=== PATIENT | male | born 1940 | race Caucasian/White ===

== ENCOUNTER 2017-03-30 05:01 | Inpatient (IN) | payer OTHER ==
[~2017-03-30] VITALS: Ht 177.8 cm; Wt 105.7 kg
[~2017-03-30 05:01] MED LIST: CIPR-245 PO; METR500T PO
[2017-03-30] MEDS ORDERED: SODIUM CHLORIDE 0.9% 1000ML 1,000 ML IV ONE ×2 (05:25→08:05)
[2017-03-30] MEDS ORDERED: MORPHINE SULFATE 8 MG/ML VIAL ONE (05:26)
[2017-03-30 05:33] LABS: BASOPHILS % (AUTO) 0.4 % (0.0-5.0); EOSINOPHILS % (AUTO) 1.7 % (0.0-8.0); HEMATOCRIT 46.9 % (42-54); LYMPHOCYTES % (AUTO) 13.7 % (21.0-51.0); MEAN CORPUSCULAR HEMOGLOBIN 31.3 pg (27.0-33.0); MEAN CORPUSCULAR HGB CONC 34.8 g/dL (32.0-36.0); MEAN CORPUSCULAR VOLUME 89.7 fL (79-99); NEUTROPHILS % (AUTO) 77.2 % (40.0-77.0); PLATELET COUNT (AUTO) 204 K/uL (130-400); RED BLOOD CELL COUNT(AUTO) 5.23 MIL/uL (4.50-6.20); RED CELL DISTRIBUTION WIDTH 12.9 % (11.0-15.5); WHITE BLOOD COUNT (AUTO) 8.5 K/uL (4.8-10.8)
[2017-03-30 05:54] LABS: CREATININE 1.2 mg/dL (0.5-1.5)
[2017-03-30 05:58] LABS: ALBUMIN 3.5 g/dL (3.5-5.0); BILIRUBIN,TOTAL 0.8 mg/dL (0.2-1.0); TOTAL PROTEIN, SERUM 6.4 g/dL (6.0-8.3)
[2017-03-30] MEDS ORDERED: IOPAMIDOL-370 75 ML VIAL IV ONE (06:00)
[2017-03-30 06:44] LABS: APPEARANCE,URINE CLEAR (CLEAR); BILIRUBIN,URINE NEGATIVE (NEGATIVE); COLOR,URINE YELLOW (YELLOW); GLUCOSE, URINE (UA) NEGATIVE (NEGATIVE); KETONES,URINE NEGATIVE (NEGATIVE); LEUKOCYTE ESTERASE ,URINE NEGATIVE (NEGATIVE); NITRATE,URINE NEGATIVE (NEGATIVE); OCCULT BLOOD,URINE NEGATIVE (NEGATIVE); PROTEIN,URINE NEGATIVE (NEGATIVE); UROBILINOGEN,URINE 0.2 mg/dL (0.2-1.0)
[2017-03-30] MEDS ORDERED: ONDANSETRON HCL 4 MG/2 ML VIAL ONE (07:24)
[2017-03-30] MEDS ORDERED: CEFTRIAXONE SODIUM 2 GM VIAL ONE (10:00)
[2017-03-30] MEDS ORDERED: GUAIFENESIN-DM 200/20 MG 10 ML PO PRN (10:15)
[2017-03-30] MEDS ORDERED: ACETAMINOPHEN 325 MG TAB PO PRN (10:15)
[2017-03-30] MEDS ORDERED: MORPHINE SULFATE 2 MG/ML 1ML SYG IV PRN (10:15)
[2017-03-30] MEDS ORDERED: ONDANSETRON HCL 4 MG/2 ML VIAL IV PRN (10:15)
[2017-03-30 11:30] VITALS: BP 120/63
[2017-03-30] MEDS ORDERED: ASPI-555 PO (12:03)
[2017-03-30] MEDS ORDERED: TAMS0.4C32 PO (12:03)
[2017-03-30] MEDS ORDERED: ZOLP5TAB8 PO (12:03)
[2017-03-30] MEDS ORDERED: PRAV20TA4 PO (12:03)
[2017-03-30] MEDS ORDERED: NITR0.4T50 SL (12:03)
[2017-03-30] MEDS ORDERED: ACET-66 PO (12:03)
[2017-03-30] MEDS ORDERED: DIPH25CA85 PO (12:03)
[2017-03-30] MEDS ORDERED: BISA-72 PO (12:03)
[2017-03-30] MEDS ORDERED: SERT25TA5 PO (12:03)
[2017-03-30] MEDS ORDERED: LEVO125T11 PO (12:03)
[2017-03-30] MEDS ORDERED: WARF3TAB59 PO (12:03)
[2017-03-30] MEDS ORDERED: ZOSYN 3.375GM+NS 50ML 50 ML IV SCH (13:00)
[2017-03-30 15:55] VITALS: BP 125/68
[2017-03-30] MEDS: MEROPENEM 1 GM VIAL IVP SCH ×2 (16:26→21:01)
[2017-03-30] MEDS: SODIUM CHLORIDE 0.9% 1000ML 1,000 ML IV SCH (16:27)
[2017-03-30 17:19] LABS: INR 1.9 (0.85-1.15); PARTIAL THROMBOPLASTIN TIME 34.8 SEC (26.3-35.5); PROTHROMBIN TIME 19.7 SEC (9.6-11.6)
[2017-03-30 19:20] VITALS: BP 131/69
[2017-03-30] MEDS ORDERED: LORAZEPAM 2 MG/ML 1 ML VIAL IVP PRN (20:00)
[2017-03-30] MEDS: FAMOTIDINE/PF 20 MG/2 ML VIAL IV SCH (21:01)
[2017-03-30 23:20] VITALS: BP 135/69
[2017-03-31] MEDS: SODIUM CHLORIDE 0.9% 1000ML 1,000 ML IV SCH ×4 (02:13→21:06)
[2017-03-31 03:40] VITALS: BP 128/67
[2017-03-31 04:09] LABS: HEMATOCRIT 43.6 % (42-54); MEAN CORPUSCULAR HEMOGLOBIN 31.1 pg (27.0-33.0); MEAN CORPUSCULAR HGB CONC 34.2 g/dL (32.0-36.0); PLATELET COUNT (AUTO) 172 K/uL (130-400); RED BLOOD CELL COUNT(AUTO) 4.79 MIL/uL (4.50-6.20); RED CELL DISTRIBUTION WIDTH 13.3 % (11.0-15.5); WHITE BLOOD COUNT (AUTO) 7.7 K/uL (4.8-10.8)
[2017-03-31 04:17] LABS: CREATININE 1.1 mg/dL (0.5-1.5); POTASSIUM 3.9 mmol/L (3.5-5.1)
[2017-03-31 04:18] LABS: INR 1.72 (0.85-1.15); PARTIAL THROMBOPLASTIN TIME 38.2 SEC (26.3-35.5); PROTHROMBIN TIME 17.9 SEC (9.6-11.6)
[2017-03-31] MEDS: MEROPENEM 1 GM VIAL IVP SCH ×3 (06:07→21:05)
[2017-03-31 08:00] VITALS: BP 122/71
[2017-03-31] MEDS: FAMOTIDINE/PF 20 MG/2 ML VIAL IV SCH ×2 (08:26→21:05)
[2017-03-31] MEDS ORDERED: NITROGLYCERIN 0.4 MG SL TAB SL PRN (11:30)
[2017-03-31] MEDS ORDERED: DIPHENHYDRAMINE HCL 25 MG CAPSULE PO PRN (11:30)
[2017-03-31] MEDS ORDERED: ZOLPIDEM TARTRATE 5 MG TAB PO PRN (11:30)
[2017-03-31] MEDS ORDERED: BISACODYL 5 MG TABLET.DR PO PRN (11:30)
[2017-03-31 12:00] VITALS: BP 114/74
[2017-03-31] MEDS ORDERED: DIATR MEGLU/DIATRIZOATE SODIUM 30 ML BOTTLE PO ONE (13:13)
[2017-03-31 16:00] VITALS: BP 139/78
[2017-03-31 20:16] VITALS: BP 138/75
[2017-03-31] MEDS: ATORVASTATIN CALCIUM 10 MG TABLET PO SCH (21:05)
[2017-04-01 00:41] VITALS: BP 132/76
[2017-04-01 04:28] LABS: HEMATOCRIT 43.1 % (42-54); MEAN CORPUSCULAR HEMOGLOBIN 31.5 pg (27.0-33.0); MEAN CORPUSCULAR HGB CONC 34.9 g/dL (32.0-36.0); MEAN CORPUSCULAR VOLUME 90.2 fL (79-99); PLATELET COUNT (AUTO) 181 K/uL (130-400); RED BLOOD CELL COUNT(AUTO) 4.78 MIL/uL (4.50-6.20); RED CELL DISTRIBUTION WIDTH 12.9 % (11.0-15.5); WHITE BLOOD COUNT (AUTO) 7.1 K/uL (4.8-10.8)
[2017-04-01 04:30] VITALS: BP 129/75
[2017-04-01 04:41] LABS: INR 1.23 (0.85-1.15); PROTHROMBIN TIME 12.9 SEC (9.6-11.6)
[2017-04-01 04:58] LABS: CREATININE 1.1 mg/dL (0.5-1.5); POTASSIUM 3.9 mmol/L (3.5-5.1)
[2017-04-01] MEDS: MEROPENEM 1 GM VIAL IVP SCH ×3 (05:09→20:41)
[2017-04-01] MEDS: LEVOTHYROXINE 125 MCG TABLET PO SCH (05:52)
[2017-04-01 07:30] VITALS: BP 125/73
[2017-04-01] MEDS: SERTRALINE HCL 50 MG TABLET PO SCH ×2 (09:00→20:41)
[2017-04-01] MEDS: TAMSULOSIN HCL 0.4 MG CAP.ER.24H PO SCH ×2 (09:00→20:41)
[2017-04-01] MEDS: FAMOTIDINE/PF 20 MG/2 ML VIAL IV SCH ×2 (09:00→20:42)
[2017-04-01] MEDS: ASPIRIN 81 MG EC TAB PO SCH (09:00)
[2017-04-01 11:35] VITALS: BP 137/66
[2017-04-01] MEDS: SODIUM CHLORIDE 0.9% 1000ML 1,000 ML IV SCH ×2 (13:01→22:11)
[2017-04-01 15:45] VITALS: BP 136/72
[2017-04-01 20:11] VITALS: BP 149/79
[2017-04-01] MEDS: ACETAMINOPHEN 325 MG TAB PO PRN (20:41)
[2017-04-01] MEDS: ATORVASTATIN CALCIUM 10 MG TABLET PO SCH (20:42)
[2017-04-02] VITALS (24 sets, daily range): BP systolic 108–141; BP diastolic 63–84
[2017-04-02] MEDS: MEROPENEM 1 GM VIAL IVP SCH ×3 (05:09→20:54)
[2017-04-02] MEDS: LEVOTHYROXINE 125 MCG TABLET PO SCH (06:15)
[2017-04-02] MEDS ORDERED: LIDOCAINE PF 2% 5ML ABBOJECT ONE (08:40)
[2017-04-02] MEDS ORDERED: ONDANSETRON HCL 4 MG/2 ML VIAL ONE ×2 (08:40→08:52)
[2017-04-02] MEDS ORDERED: DEXAMETHASONE SOD PHOSPHATE 10MG/ML 1ML VIAL ONE (08:40)
[2017-04-02] MEDS ORDERED: GLYCOPYRROLATE 0.2 MG/ML 5 ML VIAL ONE ×2 (08:40→08:57)
[2017-04-02] MEDS ORDERED: NEOSTIGMINE METHYLSULFATE 1MG/ML IV ONE ×2 (08:40→08:56)
[2017-04-02] MEDS ORDERED: SUCCINYLCHOLINE 200MG/10ML SYR ONE ×2 (08:40→08:51)
[2017-04-02] MEDS ORDERED: MIDAZOLAM HCL 1 MG/ML 2ML VIAL ONE (08:43)
[2017-04-02] MEDS ORDERED: PROPOFOL 10 MG/ML 20ML VIAL IV ONE (08:43)
[2017-04-02] MEDS ORDERED: FENTANYL CITRATE PF 50 MCG/1 ML 2ML VIAL ONE ×2 (08:44→08:56)
[2017-04-02] MEDS ORDERED: ROCURONIUM BROMIDE 10MG/1ML 5ML VL ONE (08:51)
[2017-04-02] MEDS ORDERED: LIDOCAINE HCL 2% JELLY 5 ML ONE (08:52)
[2017-04-02] MEDS ORDERED: BUPIVACAINE/PF 0.5% 30ML VIAL ONE (08:56)
[2017-04-02] MEDS ORDERED: PHENYLEPHRINE HCL 10 MG/ML 1ML VIAL IV ONE (08:57)
[2017-04-02] MEDS: ASPIRIN 81 MG EC TAB PO SCH (09:00)
[2017-04-02] MEDS: TAMSULOSIN HCL 0.4 MG CAP.ER.24H PO SCH (11:45)
[2017-04-02] MEDS: SERTRALINE HCL 50 MG TABLET PO SCH (11:45)
[2017-04-02] MEDS: FAMOTIDINE/PF 20 MG/2 ML VIAL IV SCH ×2 (11:49→20:54)
[2017-04-02] MEDS: ATORVASTATIN CALCIUM 10 MG TABLET PO SCH (20:54)
[2017-04-03 04:00] VITALS: BP 117/70
[2017-04-03] MEDS: ACETAMINOPHEN 325 MG TAB PO PRN (04:58)
[2017-04-03] MEDS: LEVOTHYROXINE 125 MCG TABLET PO SCH (06:10)
[2017-04-03 07:00] VITALS: BP 143/74
[2017-04-03] MEDS ORDERED: TRAM50TA2 PO (08:26)
[2017-04-03] MEDS: ASPIRIN 81 MG EC TAB PO SCH (09:25)
[2017-04-03] MEDS: TAMSULOSIN HCL 0.4 MG CAP.ER.24H PO SCH (09:25)
[2017-04-03] MEDS: SERTRALINE HCL 50 MG TABLET PO SCH (09:25)
[2017-04-03] MEDS: FAMOTIDINE/PF 20 MG/2 ML VIAL IV SCH (09:25)
== END 2017-04-03 10:45 | disposition home or self-care (01) | DRG 343 ==
LOC: EDH 05:01 → OBSVTOIN 10:11 → EDHIP 10:11 → 3BH 11:16
PROVIDERS: ADMIT Family Medicine; ATTEND Family Medicine
PROC: 0DTJ4ZZ Resection of Appendix, Percutaneous Endoscopic Approach (ICD-10-PCS; principal; 2017-04-02 09:07)
DX: K35.80 Unspecified acute appendicitis (principal); I48.0 Paroxysmal atrial fibrillation; E03.9 Hypothyroidism, unspecified; E78.5 Hyperlipidemia, unspecified; I10 Essential (primary) hypertension; I25.10 Atherosclerotic heart disease of native coronary artery without angina pectoris; I25.2 Old myocardial infarction; Z79.01 Long term (current) use of anticoagulants; Z86.73 Personal history of transient ischemic attack (TIA), and cerebral infarction without residual deficits; Z87.891 Personal history of nicotine dependence; Z95.1 Presence of aortocoronary bypass graft; Z95.5 Presence of coronary angioplasty implant and graft; F32.9 Major depressive disorder, single episode, unspecified; Z28.21 Immunization not carried out because of patient refusal
CPT/HCPCS: 36415; 71045; 74176; 74177; 80048; 80053; 81003; 82948; 83690; 84153; 84484; 85025; 85027; 85610; 85730; 88304; 93005; A4218; J0330; J0696; J1100; J2001; J2060; J2185; J2250; J2270; J2370; J2405; J2704; J2710; J3010; J3490; J7030; Q9963; Q9967

== ENCOUNTER → 2018-04-30 | Outpatient (CLI) | payer OTHER ==
[~2018-04-30] MED LIST changes: +ACET-66 PO; +ASPI-555 PO; +BISA-72 PO; -CIPR-245 PO; +DIPH25CA85 PO; +LEVO125T11 PO; -METR500T PO; +NITR0.4T50 SL; +PRAV20TA4 PO; +SERT25TA5 PO; +TAMS0.4C32 PO; +TRAM50TA2 PO; +WARF3TAB59 PO; +ZOLP5TAB8 PO
== END | disposition home or self-care (01) ==
LOC: SHCH 07:48
PROVIDERS: ATTEND Internal Medicine Cardiovascular Disease
DX: I71.4 Abdominal aortic aneurysm, without rupture (principal); I70.0 Atherosclerosis of aorta; Z86.79 Personal history of other diseases of the circulatory system
CPT/HCPCS: 93978

== ENCOUNTER → 2020-05-28 | Outpatient (CLI) | payer MEDICARE ==
[~2020-05-28] MED LIST changes: -ASPI-555 PO; +ASPI-556 PO; +SERT-438 PO; -SERT25TA5 PO
== END | disposition home or self-care (01) ==
LOC: SHCH 07:49
PROVIDERS: ATTEND Internal Medicine Cardiovascular Disease
DX: I71.4 Abdominal aortic aneurysm, without rupture (principal)
CPT/HCPCS: 93978

== ENCOUNTER → 2021-04-07 | Outpatient (CLI) | payer MEDICARE | END | disposition home or self-care (01) | LOC: SHCH 08:18 | PROVIDERS: ATTEND Internal Medicine Cardiovascular Disease | DX: I71.4 Abdominal aortic aneurysm, without rupture (principal); I72.3 Aneurysm of iliac artery | CPT/HCPCS: 93978 ==

== ENCOUNTER → 2022-03-17 | Outpatient (CLI) | payer MEDICARE ==
[2022-03-17 12:09] LABS: BASOPHILS % (AUTO) 0.2 % (0.0-5.0); EOSINOPHILS % (AUTO) 4.5 % (0.0-8.0); HEMATOCRIT 46.5 % (42-54); LYMPHOCYTES % (AUTO) 20.9 % (21.0-51.0); MEAN CORPUSCULAR HGB CONC 32.7 g/dL (32.0-36.0); MEAN CORPUSCULAR VOLUME 91.7 fL (79-99); NEUTROPHILS % (AUTO) 64.9 % (40.0-77.0); PLATELET COUNT (AUTO) 195 K/uL (130-400); RED BLOOD CELL COUNT(AUTO) 5.07 MIL/uL (4.50-6.20); RED CELL DISTRIBUTION WIDTH 13.2 % (11.0-15.5); WHITE BLOOD COUNT (AUTO) 5.8 K/uL (4.8-10.8)
[2022-03-17 12:41] LABS: ALBUMIN 3.7 g/dL (3.5-5.0); CREATININE 1.2 mg/dL (0.5-1.5); POTASSIUM 4.2 mmol/L (3.5-5.1); TOTAL PROTEIN, SERUM 6.8 g/dL (6.0-8.3)
== END | disposition home or self-care (01) ==
LOC: LAB 09:39
PROVIDERS: ATTEND Internal Medicine Cardiovascular Disease
DX: I25.10 Atherosclerotic heart disease of native coronary artery without angina pectoris (principal); Z79.01 Long term (current) use of anticoagulants; E78.5 Hyperlipidemia, unspecified
CPT/HCPCS: 36415; 80053; 80061; 84436; 84443; 84479; 85025